=== PATIENT | female | born 1985 | race African-American/Black ===

== ENCOUNTER 2016-10-28 09:28 | Emergency (ER) | payer BC, OTHER ==
[~2016-10-28] VITALS: Ht 160 cm; Wt 129.0 kg
[2016-10-28] MEDS ORDERED: KETOROLAC 30MG/ML VIAL IV ONE (10:15)
[2016-10-28] MEDS ORDERED: SODIUM CHLORIDE 0.9% 1,000 ML IV ONE (10:15)
[2016-10-28] MEDS ORDERED: FAMOTIDINE 20MG TABLET PO ONE (10:30)
[2016-10-28] MEDS ORDERED: VISCOUS LIDOCAINE 2% 15 ML UDC MM ONE (10:30)
[2016-10-28] MEDS ORDERED: DICYCLOMINE HCL 10MG CAPSULE PO ONE (10:30)
[2016-10-28] MEDS ORDERED: MAGNESIUM/ALUMINUM HYDROXIDE/SIMETHICONE 30ML UDC PO ONE (10:30)
[2016-10-28 10:42] LABS: BASOPHILS % 0.6 % (0.0-2.0); EOSINOPHILS % 1.6 % (0.0-5.0); HEMATOCRIT. 39.7 % (36.0-48.0); HEMOGLOBIN. 13.2 g/dL (12.0-16.0); LYMPHOCYTES % 20.4 % (20.0-50.0); MEAN CORPUSCULAR HEMOGLOBIN 29.8 pg (28.0-32.0); MEAN CORPUSCULAR HGB CONC 33.2 g/dL (31.0-37.0); MEAN CORPUSCULAR VOLUME 89.7 fL (81.0-99.0); MEAN PLATELET VOLUME 7.7 fl (7.4-10.4); MONOCYTES % 6.2 % (2.0-8.0); NEUTROPHILS % 71.2 % (40.0-76.0); PLATELET 271 x1000/uL (130-400); RED BLOOD CELL COUNT 4.42 mill/uL (4.2-5.4); RED CELL DISTRIBUTION WIDTH 14.2 % (11.6-14.6); WHITE BLOOD COUNT 9.3 x1000/uL (4.5-11.0)
[2016-10-28 10:51] LABS: PROTHROMBIN TIME 10.2 sec
[2016-10-28 10:57] LABS: ALANINE AMINOTRANSFERASE 30 IU/L (13-61); ALBUMIN 3.9 g/dL (3.4-5.0); ANION GAP 11; CALCIUM 8.9 mg/dL (8.5-10.1); CARBON DIOXIDE 30 mEq/L (21-32); CHLORIDE 104 mEq/L (98-107); INDEX HEMOLYSI 1 (1-3); INDEX ICTERIC 1 (1-4); INDEX LIPEMIC 1 (1-3); LIPASE 132 IU/L (73-393); UREA NITROGEN BLOOD 11 mg/dL (7-21); eGFR > 60 mL/min (>60)
[2016-10-28] MEDS ORDERED: TRAMADOL 50MG TABLET PO ONE (13:00)
[2016-10-28 14:10] VITALS: BP 120/84
== END 2016-10-28 14:11 | disposition home or self-care (01) ==
LOC: ER 10:49
DX: R09.1 Pleurisy (principal); K21.9 Gastro-esophageal reflux disease without esophagitis; Z87.11 Personal history of peptic ulcer disease; Z88.8 Allergy status to other drugs, medicaments and biological substances
CPT/HCPCS: 36415; 71010; 80053; 81025; 83690; 85025; 85610; 93005; 99285; Z7610; J7030